=== PATIENT | female | born 1960 | race African-American/Black ===

== ENCOUNTER 2017-01-27 01:46 | Emergency (ER) | payer SELFPAY ==
[~2017-01-27] VITALS: Ht 160 cm; Wt 93.0 kg
[~2017-01-27 01:46] MED LIST: DICL75TA PO; HYDR-3533 PO; HYDR10SO PO; PERC5TAB12 PO
[2017-01-27] MEDS ORDERED: HYDR-3583 PO (01:55)
[2017-01-27 01:56] VITALS: BP 174/81; PULSE 88; RESP 22; TEMP 99.1; O2SAT 100
[2017-01-27 02:06] VITALS: O2SAT 99
[2017-01-27 02:21] LABS: BASOPHIL # 0.1 TH/MM3 (0-0.2); BASOPHIL % 0.6 % (0.0-2.0); EOSINOPHIL # 0.1 TH/MM3 (0-0.4); EOSINOPHIL % 0.7 % (0.0-4.0); HEMATOCRIT 36.6 % (35.0-46.0); HEMO FLAGS DIFF FINAL; LYMPH % 28.6 % (9.0-44.0); MEAN CELL VOLUME 86.3 FL (80.0-100.0); MEAN CORPUSCULAR HEMOGLOBIN 29.7 PG (27.0-34.0); MEAN CORPUSCULAR HGB CONC 34.4 % (32.0-36.0); MONO % 5.8 % (0.0-8.0); NEUT % 64.3 % (16.0-70.0); PLATELET COUNT 327 TH/MM3 (150-450); RED BLOOD COUNT 4.24 MIL/MM3 (4.00-5.30); RED CELL DISTRIBUTION WIDTH 14.5 % (11.6-17.2)
--- NOTE | 2017-01-27 02:24 | RADRPT ---
EXAM DATE/TIME: 01/27/2017 02:08 [facility] COMPARISON: No previous studies available for comparison. INDICATIONS : Short of breath. MEDICAL HISTORY : None. SURGICAL HISTORY : None. ENCOUNTER: Initial ACUITY: 1 day PAIN SCORE: 6/10 LOCATION: Bilateral chest FINDINGS: The lungs are clear without infiltrate, nodule, or mass. There is no appreciable pleural effusion fo r technique. Heart and mediastinum are unremarkable. CONCLUSION: No acute cardiopulmonary disease. Iva Young MD on January 27, 2017 at 2:22 Board Certified Radiologist. This report was verified electronically.
[2017-01-27 02:35] LABS: APTT (PATIENT) 27.4 SEC (24.3-30.1); INTERNATIONAL NORMALIZED RATIO 0.9 RATIO; PROTHROMBIN TIME - PATIENT 10.2 SEC (9.8-11.6)
[2017-01-27 02:45] LABS: ALKALINE PHOSPHATASE 109 U/L (45-117); ALT (GPT) 20 U/L (10-53); ANION GAP 7 MEQ/L (5-15); AST (GOT) 21 U/L (15-37); BICARBONATE 29.8 MEQ/L (21.0-32.0); BLOOD UREA NITROGEN 15 MG/DL (7-18); CHLORIDE 108 MEQ/L (98-107); CREATINE KINASE 225 U/L (26-192); GLOMERULAR FILTRATION RATE 93 ML/MIN (>89); POTASSIUM 3.8 MEQ/L (3.5-5.1); SODIUM (NA) 145 MEQ/L (136-145); TOTAL BILIRUBIN ADULT 0.5 MG/DL (0.2-1.0)
[2017-01-27 03:06] LABS: CKMB 1.4 NG/ML (0.5-3.6)
[2017-01-27] MEDS ORDERED: VENTAER INH (03:47)
[2017-01-27] MEDS ORDERED: PRED50 PO (03:47)
--- NOTE | 2017-01-27 03:47 | PD ---
HPI Chief Complaint: Respiratory Symptoms Time Seen by Provider: 01:48 Travel History International Travel<30 days: No Contact w/Intl Traveler<30days: No Traveled to known affect area: No History of Present Illness HPI 56-year-old female presents after she was in a tight space with bleach then she went to a bar where she was picked up by ambulance for shortness of breath. They gave her 125 mg of Solu-Medrol and 3 breathing treatments. On arrival to the emergency department she notes shortness of breath and denies other significant complaints. She initially was drowsy and not wanting to answer questions which limits history PFSH Past Medical History Narrative Medical By records Heart Rhythm Problems: Yes (HEART MURMUR) Cardiovascular Problems: Yes Diminished Hearing: No Musculoskeletal: Yes ("BULGING DISCS" IN BACK) Respiratory: Yes (BRONCHITIS) Immunizations Current: Yes Seizures: Yes (OCCASIONAL; DOES NOT TAKE MEDS ) Influenza Vaccination: No ?: Not Menopausal: Yes : 3 Para: 3 Tubal Ligation: Yes Past Surgical History Narrative Surgical By records Surgical History: No Previous Surgery Social History Alcohol Use: No Tobacco Use: Yes (2 cigs PER DAY) Substance Use: No Allergies-Medications (Allergen,Severity, Reaction): Coded Allergies: Penicillin (Verified Allergy, Severe, ROMIE, 01/27/17) Reported Meds & Prescriptions Reported Meds & Active Scripts Active Prednisone 50 Mg Tab 50 Mg PO DAILY Ventolin Hfa 18 GM Inh (Albuterol Sulfate) 90 Mcg/Act Aer 2 Puff INH Q4-6H PRN Reported Hydrocodone-Acetaminophen 10-325 mg Tab 1 Tab PO QID Review of Systems ROS Limitations: Poor Historian Physical Exam Exam Limitations: Poor Historian Narrative GENERAL: Well-nourished, well-developed patient. SKIN: Warm and dry. HEAD: Normocephalic and atraumatic. EYES: No injection or drainage. ENT: No nasal drainage noted. NECK: Supple, trachea midline. CARDIOVASCULAR: Regular rate and rhythm RESPIRATORY: Breath sounds equal bilaterally. No accessory muscle use. GASTROINTESTINAL: Abdomen soft, non-tender, nondistended. EXTREMITIES: No edema. NEUROLOGICAL: Awakens to voice. Moves all extremities. Normal speech. Data Data Last Documented VS Vital Signs Date Time Temp Pulse Resp B/P Pulse Ox O2 Delivery O2 Flow Rate FiO2 01/27/17 02:06 99 Room Air 01/27/17 02:06 90 22 01/27/17 01:56 99.1 174/81 Orders Magnesium (Mg) (01/27/17 01:48) Phosphorus (Po4) (01/27/17 01:48) Complete Blood Count With Diff (01/27/17 01:48) Comprehensive Metabolic Panel (01/27/17 01:48) Ckmb (Isoenzyme) Profile (01/27/17 01:48) Troponin I (01/27/17 01:48) Act Partial Throm Time (Ptt) (01/27/17 01:48) Prothrombin Time / Inr (Pt) (01/27/17 01:48) B-Type Natriuretic Peptide (01/27/17 01:48) Chest, Single Ap (01/27/17 ) Electrocardiogram (01/27/17 ) Iv Access Insert/Monitor (01/27/17 01:48) Ecg Monitoring (01/27/17 01:48) Oximetry (01/27/17 01:48) Alcohol (Ethanol) (01/27/17 01:48) Drug Screen, Random Urine (01/27/17 01:48) CKMB (01/27/17 02:00) CKMB% (01/27/17 02:00) Labs Laboratory Tests Test 01/27/17 02:00 White Blood Count 14.0 TH/MM3 Red Blood Count 4.24 MIL/MM3 Hemoglobin 12.6 GM/DL Hematocrit 36.6 % Mean Corpuscular Volume 86.3 FL Mean Corpuscular Hemoglobin 29.7 PG Mean Corpuscular Hemoglobin 34.4 % Concent Red Cell Distribution Width 14.5 % Platelet Count 327 TH/MM3 Mean Platelet Volume 8.0 FL Neutrophils (%) (Auto) 64.3 % Lymphocytes (%) (Auto) 28.6 % Monocytes (%) (Auto) 5.8 % Eosinophils (%) (Auto) 0.7 % Basophils (%) (Auto) 0.6 % Neutrophils # (Auto) 9.0 TH/MM3 Lymphocytes # (Auto) 4.0 TH/MM3 Monocytes # (Auto) 0.8 TH/MM3 Eosinophils # (Auto) 0.1 TH/MM3 Basophils # (Auto) 0.1 TH/MM3 CBC Comment DIFF FINAL Differential Comment Prothrombin Time 10.2 SEC Prothromb Time International 0.9 RATIO Ratio Activated Partial 27.4 SEC Thromboplast Time Sodium Level 145 MEQ/L Potassium Level 3.8 MEQ/L Chloride Level 108 MEQ/L Carbon Dioxide Level 29.8 MEQ/L Anion Gap 7 MEQ/L Blood Urea Nitrogen 15 MG/DL Creatinine 0.78 MG/DL Estimat Glomerular Filtration 93 ML/MIN Rate Random Glucose 95 MG/DL Calcium Level 8.7 MG/DL Phosphorus Level 3.3 MG/DL Magnesium Level 2.0 MG/DL Total Bilirubin 0.5 MG/DL Aspartate Amino Transf 21 U/L (AST/SGOT) Alanine Aminotransferase 20 U/L (ALT/SGPT) Alkaline Phosphatase 109 U/L Total Creatine Kinase 225 U/L Creatine Kinase MB 1.4 NG/ML Creatine Kinase MB % 0.6 % Troponin I LESS THAN 0.02 NG/ML B-Type Natriuretic Peptide 29 PG/ML Total Protein 6.8 GM/DL Albumin 3.7 GM/DL Ethyl Alcohol Level LESS THAN 3 MG/DL MDM Medical Decision Making Medical Screen Exam Complete: Yes Emergency Medical Condition: Yes Medical Record Reviewed: Yes (past history confirmed) Interpretation(s) EKG is sinus rhythm without STEMI criteria Last 24 hours Impressions Chest X-Ray 01/27/17 0000 Signed Impressions: Service Date/Time: Friday, January 27, 2017 02:08 - CONCLUSION: No acute cardiopulmonary disease. Iva Young MD CBC & BMP Diagram 01/27/17 02:00 Differential Diagnosis Reactive airway disease, pneumonia, URI, electrolyte abnormality Narrative Course Will check blood work, chest x-ray and EKG On recheck patient is awake and answering questions appropriately. Her lungs are clear to auscultation bilaterally. Her family is at bedside,Patient denies any new complaints and states that they are feeling better, all questions answered. Patient knows that follow up is incumbent on them and to return to the emergency room immediately if new or worsening symptoms develop. Patient given strict return precautions, vitals reviewed and are normal, agrees to further workup as an outpatient. Diagnosis Primary Impression: Reactive airway disease Qualified Code: J45.901 - Reactive airway disease, unspecified asthma severity , with acute exacerbation Patient Instructions: General Instructions Additional Instructions: albuterol as needed, follow with primary next 1-2 days, return as needed Med/Other Pt SpecificInfo: Prescription(s) given Scripts Prednisone 50 Mg Tab50 Mg PO DAILY #5 TAB Prov:Anjelica Francis MD 01/27/17 Albuterol 18 GM Inh (Ventolin Hfa 18 GM Inh)90 Mcg/Act Aer2 Puff INH Q4-6H PRN ( SHORTNESS OF BREATH) #1 INHALER Prov:Anjelica Francis MD 01/27/17 Disposition: 01 DISCHARGE HOME Condition: Stable Anjelica Francis MD January 27, 2017 03:47
--- NOTE | 2017-01-27 16:05 | EKG ---
Date Performed: 01/27/2017 Time Performed: 01:59:16 PTAGE: 56 years EKG: Sinus rhythm POSSIBLE LEFT ATRIAL ENLARGEMENT When compared to previous tracing, QRS voltage has increased Signif icantly, and T wave changes are slightly more prominant. ABNORMAL ECG PREVIOUS TRACING : 11/25/2010 12.00 DOCTOR: Rey Contreras Interpretating Date/Time 01/27/2017 16:05:16
== END 2017-01-27 04:16 | disposition home or self-care (01) ==
LOC: NEPC 01:46
DX: J45.901 Unspecified asthma with (acute) exacerbation (principal); R94.31 Abnormal electrocardiogram [ECG] [EKG]; Z72.0 Tobacco use; Z86.79 Personal history of other diseases of the circulatory system; Z87.39 Personal history of other diseases of the musculoskeletal system and connective tissue; Z86.69 Personal history of other diseases of the nervous system and sense organs
CPT/HCPCS: 71010; 80053; 80307; 82550; 82552; 83735; 83880; 84100; 84484; 85025; 85610; 85730; 93005; 99285

== ENCOUNTER 2017-06-10 17:19 | Emergency (ER) | payer MEDICAID, OTHER ==
[~2017-06-10] VITALS: Ht 160 cm; Wt 105.0 kg
[~2017-06-10 17:19] MED LIST changes: -DICL75TA PO; -HYDR-3533 PO; +HYDR-3583 PO; -HYDR10SO PO; -PERC5TAB12 PO; +PRED50 PO; +VENTAER INH
[2017-06-10 17:22] VITALS: BP 162/82; PULSE 105; RESP 16; TEMP 98.8; O2SAT 97
--- NOTE | 2017-06-10 19:05 | PD ---
HPI Chief Complaint: Fall Time Seen by Provider: 19:03 Travel History International Travel<30 days: No Contact w/Intl Traveler<30days: No Traveled to known affect area: No History of Present Illness HPI 56-year-old female here with left arm pain. Prior to arrival she was running from a dog when she tripped and fell, landing on her left shoulder and elbow. She now has an aching pain in her left shoulder and elbow, constant, worse with movement. Denies numbness tingling weakness. Denies neck or back pain. Denies chest pain, shortness of breath, headache. Denies any open wounds. No other complaints. PFSH Past Medical History Heart Rhythm Problems: Yes (HEART MURMUR) Cardiovascular Problems: Yes Diminished Hearing: No Musculoskeletal: Yes ("BULGING DISCS" IN BACK) Respiratory: Yes (BRONCHITIS) Immunizations Current: Yes Seizures: Yes (OCCASIONAL; DOES NOT TAKE MEDS ) ?: Not Menopausal: Yes : 3 Para: 3 Tubal Ligation: Yes Social History Alcohol Use: No Tobacco Use: Yes (2 cigs PER DAY) Substance Use: No Allergies-Medications (Allergen,Severity, Reaction): Coded Allergies: penicillin G (Unverified Allergy, Severe, SWELLS, 06/10/17) Reported Meds & Prescriptions Reported Meds & Active Scripts Active Ibuprofen 600 Mg Tab 600 Mg PO Q6H PRN 10 Days Prednisone 50 Mg Tab 50 Mg PO DAILY Ventolin Hfa 18 GM Inh (Albuterol Sulfate) 90 Mcg/Act Aer 2 Puff INH Q4-6H PRN Reported Synthroid (Levothyroxine Sodium) 25 Mcg Tab Unknown Dose PO DAILY Hydrocodone-Acetaminophen 10-325 mg Tab 1 Tab PO QID Review of Systems Musculoskeletal: Positive: Limited ROM, Pain Skin: Positive Other (denies open wounds) Physical Exam Narrative GENERAL: Well-nourished female in no acute distress SKIN: Warm and dry. No open wounds. HEAD: Atraumatic. Normocephalic. EYES: Pupils equal and round. No scleral icterus. No injection or drainage. ENT: No nasal bleeding or discharge. Mucous membranes pink and moist. NECK: Trachea midline. No JVD. CARDIOVASCULAR: Regular rate and rhythm. No murmur appreciated. RESPIRATORY: No accessory muscle use. Clear to auscultation. Breath sounds equal bilaterally. GASTROINTESTINAL: Abdomen soft, non-tender, nondistended. Hepatic and splenic margins not palpable. MUSCULOSKELETAL: There is tenderness to palpation of left shoulder and left elbow joint with no obvious deformities, no obvious joint effusion, no bruising or soft tissue swelling. The patient has pain with passive and active range of motion of the left shoulder and elbow. Capillary refill less than 2 seconds all digits left hand, 2+ radial pulse. No tenderness to palpation along the cervical thoracic or lumbar midline spine. NEUROLOGICAL: Awake and alert. No obvious cranial nerve deficits. Motor grossly within normal limits. Normal speech. Data Data Last Documented VS Vital Signs Date Time Temp Pulse Resp B/P (MAP) Pulse Ox O2 Delivery O2 Flow Rate FiO2 06/10/17 19:31 16 97 Room Air 06/10/17 19:31 98.6 87 167/77 (107) Orders Orders Elbow, Complete (4 Vws) (06/10/17 ) Shoulder, Complete (>2vws) (06/10/17 ) Support Splint (06/10/17 19:43) MDM Medical Decision Making Medical Screen Exam Complete: Yes Emergency Medical Condition: Yes Medical Record Reviewed: Yes Differential Diagnosis Shoulder strain, contusion, proximal to her fracture, acromial clavicular separation, rotator cuff injury, elbow contusion, olecranon bursitis, fracture Narrative Course X-ray imaging of the left shoulder and elbow will be obtained. X-ray imaging reveals no acute abnormalities. The patient is being edematous laying for short-term use, discussed the importance passive range of motion activities. She is stable for discharge, outpatient follow-up. Diagnosis Primary Impression: Left shoulder strain Qualified Codes: S46.912A - Strain of unspecified muscle, fascia and tendon at shoulder and upper arm level, left arm, initial encounter Additional Impression: Strain of left elbow Qualified Codes: S56.912A - Strain of unspecified muscles, fascia and tendons at forearm level, left arm, initial encounter Additional Instructions: Sling for short-term to 3 days, perform passive range of motion actively several times a day, ibuprofen for pain, take with meals. Follow-up with primary care physician in 2 weeks. Return for any emergent medical conditions. Med/Other Pt SpecificInfo: Prescription(s) given, Orthopedic Instructions Scripts Ibuprofen (Ibuprofen) 600 Mg Tab 600 MG PO Q6H Y for PAIN for 10 Days, #40 TAB 0 Refills Prov: Hakeem Dash MD 06/10/17 Disposition: 01 DISCHARGE HOME Condition: Stable Anil Cleary Jun 10, 2017 19:05
[2017-06-10 19:31] VITALS: BP 167/77; PULSE 87; TEMP 98.6; O2SAT 97
[2017-06-10] MEDS ORDERED: SYNT25TA PO (19:39)
--- NOTE | 2017-06-10 19:40 | RADRPT ---
EXAM DATE/TIME: 06/10/2017 19:11 [facility] COMPARISON: No previous studies available for comparison. INDICATIONS : Left elbow pain. Patient tripped over her dog today. MEDICAL HISTORY : None. SURGICAL HISTORY : None. ENCOUNTER: Initial ACUITY: 1 day PAIN SCORE: 10/10 LOCATION: Left elbow. FINDINGS: No fracture is seen. The elbow joint is normally aligned. No effusion is seen. There is chronic hyper trophic change at the medial epicondyle. There is a minimal spur at the olecranon. CONCLUSION: No acute disease. Sarmad Elder MD on June 10, 2017 at 19:38 Board Certified Radiologist. This report was verified electronically.
--- NOTE | 2017-06-10 19:40 | RADRPT ---
EXAM DATE/TIME: 06/10/2017 19:18 [facility] COMPARISON: No previous studies available for comparison. INDICATIONS : Left shoulder pain. Patient tripped over her dog today. MEDICAL HISTORY : None. SURGICAL HISTORY : None. ENCOUNTER: Initial ACUITY: 1 day PAIN SCORE: 5/10 LOCATION: Left shoulder. FINDINGS: Multiple view examination of the left shoulder demonstrates no evidence of fracture or dislocation. The glenohumeral and acromioclavicular joints are maintained. There is normal range of motion betwee n internal and external rotation. Bony mineralization is normal. CONCLUSION: No acute disease. Sarmad Elder MD on June 10, 2017 at 19:37 Board Certified Radiologist. This report was verified electronically.
[2017-06-10] MEDS ORDERED: IBUP-232 PO (19:44)
== END 2017-06-10 20:44 | disposition home or self-care (01) ==
LOC: NEPD 17:19
DX: S46.912A Strain of unspecified muscle, fascia and tendon at shoulder and upper arm level, left arm, initial encounter (principal); S56.912A Strain of unspecified muscles, fascia and tendons at forearm level, left arm, initial encounter; W01.0XXA Fall on same level from slipping, tripping and stumbling without subsequent striking against object, initial encounter; Y93.02 Activity, running
CPT/HCPCS: 73030; 73080; 99284